=== PATIENT | male | born 1975 | race Caucasian/White ===

== ENCOUNTER 2024-03-25 02:31 | Outpatient (CLI) | payer BC, SELFPAY ==
--- NOTE | 2024-03-25 | DI.NM_ITS ---
Exam(s) NM HEPATOBILIARY CCK GRP EXAM: NM HEPATOBILIARY CCK GRP CLINICAL HISTORY: R10.11 Abd pain RUQ. TECHNIQUE: Injected dose: 5 mCi Tc-99 mebrofenin Initial dynamic images: 60 minutes Post-Gallbladder fillin.4 mcg CCK intravenously according to protocol. Addition images: 20 minute dynamic during CCK administration. COMPARISON: US US Abdomen Limited from 02/17/2024 FINDINGS: Normal hepatic transit time. Prompt excretion into the small bowel. Prompt excretion into the gallbladder. The gallbladder ejection fraction was 93 percent. IMPRESSION: 1. Normal examination. SN guidelines: Gallbladder visualization should be present by 3 hours. Delayed fywbyne-mn-ngzeu daly sit beyond 60 min raises the suspicion for partial common bile duct (CBD) obstruction. Gallbladder ejection fraction <35% has a good correlation with acalculous disease (i.e., chronic acal culous cholecystitis, cystic duct syndrome, sphincter of Oddi disease).
[2024-03-25] MEDS: Sincalide 5 MCG VIAL 1.4 MCG IJ (08:59)
== END 2024-03-25 02:51 ==
PROVIDERS: PCP Registered Nurse; Visit Provider Registered Nurse
DX: R10.11 Right upper quadrant pain (principal)
CPT/HCPCS: 78227; J2805